=== PATIENT | male | born 1940 | race Caucasian/White ===

== ENCOUNTER 2022-08-04 17:15 | Observation (INO) | payer MEDICARE, OTHER ==
[2022-08-04] MEDS ORDERED: Acetaminophen/oxyCODONE 325-5 MG Tab PO ONE (18:40)
[2022-08-04] MEDS ORDERED: Sodium Chloride 0.9% 10 ML Syringe FLUSH PRN (19:03)
[2022-08-04 19:52] LABS: ESTIMATED GFR 60 mL/min (>60)
[2022-08-04] MEDS ORDERED: Gabapentin 300 MG Cap ONE (22:00)
[2022-08-04] MEDS ORDERED: Sodium Chloride 0.9% 1,000 ML IV SCH (22:00)
[2022-08-04] MEDS ORDERED: Carvedilol 12.5 MG Tab ONE (22:00)
[2022-08-04] MEDS ORDERED: Cyclobenzaprine 10 MG Tab ONE (22:00)
[2022-08-04] MEDS ORDERED: Sodium Chloride 0.9% 1,000 ML IV ONE (22:40)
[2022-08-05] MEDS ORDERED: Sodium Chloride 0.9% 1,000 ML IV ONE ×2 (02:00→10:30)
[2022-08-05] MEDS ORDERED: Potassium Chloride 20 MEQ Tab.ER ONE ×2 (09:00)
[2022-08-05] MEDS ORDERED: amLODIPine 5 MG Tab ONE (09:00)
[2022-08-05] MEDS ORDERED: Chlorthalidone 25 MG Tab ONE (09:00)
[2022-08-05] MEDS ORDERED: Hydrochlorothiazide 25 MG Tab ONE (09:00)
[2022-08-05] MEDS ORDERED: Cyanocobalamin (Vitamin B12) 1,000 MCG Tab ONE (09:00)
[2022-08-05] MEDS ORDERED: Clopidogrel 75 MG Tab ONE (09:00)
[2022-08-05] MEDS ORDERED: Carvedilol 3.125 MG Tab ONE (09:00)
[2022-08-05] MEDS ORDERED: Losartan 50 MG Tab ONE ×2 (09:00)
[2022-08-05] MEDS ORDERED: Cyclobenzaprine 10 MG Tab ONE (09:00)
[2022-08-05] MEDS ORDERED: Acetaminophen/HYDROcodone 325-5 MG Tab PO ONE (09:40)
[2022-08-05] MEDS ORDERED: traMADol 50 MG Tab PO ONE ×2 (14:05→20:30)
[2022-08-06] MEDS ORDERED: traMADol 50 MG Tab PO ONE ×4 (00:50→18:55)
[2022-08-06] MEDS ORDERED: Losartan 50 MG Tab ONE ×2 (09:00)
[2022-08-06] MEDS ORDERED: Albuterol/Ipratropium 3.0-0.5 MG/3 ML Neb Soln ONE ×3 (09:00)
[2022-08-06] MEDS ORDERED: Clopidogrel 75 MG Tab ONE (09:00)
[2022-08-06] MEDS ORDERED: Hydrochlorothiazide 25 MG Tab ONE (09:00)
[2022-08-06] MEDS ORDERED: Rosuvastatin 10 MG Tab ONE (09:00)
[2022-08-06] MEDS ORDERED: Cyanocobalamin (Vitamin B12) 1,000 MCG Tab ONE (09:00)
[2022-08-06] MEDS ORDERED: cefTRIAXone 1 GM in Sodium Chloride 0.9% 50 ML IV ONE (15:00)
[2022-08-06] MEDS ORDERED: Azithromycin 500 MG in Sodium Chloride 0.9% 250 ML IV ONE (16:00)
[2022-08-07] MEDS ORDERED: Albuterol/Ipratropium 3.0-0.5 MG/3 ML Neb Soln INH ONE ×4 (07:00→21:00)
[2022-08-07] MEDS ORDERED: traMADol 50 MG Tab PO ONE ×4 (08:41→22:00)
[2022-08-07] MEDS ORDERED: Losartan 50 MG Tab ONE (09:00)
[2022-08-07] MEDS ORDERED: Hydrochlorothiazide 25 MG Tab ONE (09:00)
[2022-08-07] MEDS ORDERED: Budesonide 3 MG Cap.ER ONE (09:00)
[2022-08-07] MEDS ORDERED: Clopidogrel 75 MG Tab ONE (09:00)
[2022-08-07] MEDS ORDERED: Calcium Carbonate 500 MG Tab.Chew ONE (09:00)
[2022-08-07] MEDS ORDERED: Cyanocobalamin (Vitamin B12) 1,000 MCG Tab ONE (09:00)
[2022-08-07] MEDS ORDERED: Rosuvastatin 10 MG Tab ONE (09:00)
[2022-08-07] MEDS ORDERED: cefTRIAXone 1 GM in Sodium Chloride 0.9% 50 ML IV ONE (13:10)
[2022-08-07] MEDS ORDERED: Azithromycin 500 MG in Sodium Chloride 0.9% 250 ML IV ONE (14:30)
[2022-08-07] MEDS ORDERED: Cyclobenzaprine 10 MG Tab PO ONE (17:20)
[2022-08-08] MEDS ORDERED: traMADol 50 MG Tab PO ONE ×4 (08:50→23:35)
[2022-08-08] MEDS ORDERED: Losartan 50 MG Tab ONE (09:00)
[2022-08-08] MEDS ORDERED: Albuterol/Ipratropium 3.0-0.5 MG/3 ML Neb Soln ONE ×4 (09:00)
[2022-08-08] MEDS ORDERED: amLODIPine 5 MG Tab ONE (09:00)
[2022-08-08] MEDS ORDERED: Carvedilol 3.125 MG Tab ONE (09:00)
[2022-08-08] MEDS ORDERED: Clopidogrel 75 MG Tab ONE (09:00)
[2022-08-08] MEDS ORDERED: Calcium Carbonate 500 MG Tab.Chew ONE (09:00)
[2022-08-08] MEDS ORDERED: Rosuvastatin 10 MG Tab ONE (09:00)
[2022-08-08] MEDS ORDERED: Chlorthalidone 25 MG Tab ONE (09:00)
[2022-08-08] MEDS ORDERED: Cyanocobalamin (Vitamin B12) 1,000 MCG Tab ONE (09:00)
[2022-08-08] MEDS ORDERED: Budesonide 3 MG Cap.ER ONE (09:00)
[2022-08-08] MEDS ORDERED: Hydrochlorothiazide 25 MG Tab ONE (09:00)
[2022-08-08] MEDS ORDERED: Gabapentin 300 MG Cap ONE (09:00)
[2022-08-08] MEDS ORDERED: Sertraline 50 MG Tab ONE (09:00)
[2022-08-08] MEDS ORDERED: Carvedilol 12.5 MG Tab ONE (09:00)
[2022-08-08] MEDS ORDERED: cefTRIAXone 1 GM in Sodium Chloride 0.9% 50 ML IV ONE (14:15)
[2022-08-08] MEDS ORDERED: Azithromycin 500 MG in Sodium Chloride 0.9% 250 ML IV ONE (15:05)
[2022-08-09] MEDS ORDERED: traMADol 50 MG Tab PO ONE ×3 (03:40→12:00)
[2022-08-09] MEDS ORDERED: Chlorthalidone 25 MG Tab ONE (07:00)
[2022-08-09] MEDS ORDERED: Rosuvastatin 10 MG Tab ONE (07:00)
[2022-08-09] MEDS ORDERED: Clopidogrel 75 MG Tab ONE (07:00)
[2022-08-09] MEDS ORDERED: Sertraline 50 MG Tab ONE (07:00)
[2022-08-09] MEDS ORDERED: amLODIPine 5 MG Tab ONE (07:00)
[2022-08-09] MEDS ORDERED: Losartan 50 MG Tab ONE (07:00)
[2022-08-09] MEDS ORDERED: Carvedilol 3.125 MG Tab ONE (07:00)
[2022-08-09] MEDS ORDERED: Albuterol/Ipratropium 3.0-0.5 MG/3 ML Neb Soln ONE ×2 (07:00)
[2022-08-09] MEDS ORDERED: Cyanocobalamin (Vitamin B12) 1,000 MCG Tab ONE (07:00)
[2022-08-09] MEDS ORDERED: Budesonide 3 MG Cap.ER ONE (07:00)
[2022-08-09] MEDS ORDERED: Hydrochlorothiazide 25 MG Tab ONE (07:00)
[2022-08-09] MEDS ORDERED: cefTRIAXone 1 GM in Sodium Chloride 0.9% 50 ML IV ONE (11:50)
[2022-08-09] MEDS ORDERED: Azithromycin 500 MG in Sodium Chloride 0.9% 250 ML IV ONE (12:00)
== END 2022-08-09 12:00 ==
LOC: JP.ED 17:15 → JP.ZCENSUS 20:30 → JP.ED 22:20
PROVIDERS: ADMIT Nurse Practitioner; ATTEND Hospitalist
DX: S42.401A Unspecified fracture of lower end of right humerus, initial encounter for closed fracture (principal); F32.A Depression, unspecified; I10 Essential (primary) hypertension; G89.29 Other chronic pain; M25.512 Pain in left shoulder; J18.9 Pneumonia, unspecified organism; E87.6 Hypokalemia; Z20.822 Contact with and (suspected) exposure to COVID-19; W19.XXXA Unspecified fall, initial encounter; Z88.2 Allergy status to sulfonamides; Z88.8 Allergy status to other drugs, medicaments and biological substances; Z79.899 Other long term (current) drug therapy; Z87.891 Personal history of nicotine dependence
CPT/HCPCS: 29105; 36415; 71046; 73080; 80048; 80053; 81001; 83735; 85025; 85027; 87040; 93005; 94640; 97110; 97116; 97140; 97162; 97530; 97535; 99284; A9270; J0456; J0696; J3490; J7030; J7050; U0002; 96361; 96365; 96366; 96367; 96376; G0378; J7620